=== PATIENT | male | born 1985 | race American Indian/Alaskan Native ===

== ENCOUNTER 2021-02-22 12:19 | Emergency (ER) | payer SELFPAY ==
[2021-02-22 12:37] VITALS: BP 138/85
--- NOTE | 2021-02-22 12:43 | Emergency Department Report ---
HPI - General Chief Complaint: Urogenital-Male Time Seen by Provider: 02/22/21 12:31 - HPI [place] [facility] [place] The patient is a 35-year-old male present with a chief complaint of right testicle pain. The patient states he was having intercourse 02/17/2021 with his partner on top when she reportedly came down on his right testicle. Patient complains of pain since. Patient states the pain has subsided somewhat but is still present. Patient denies dysuria or hematuria. Patient denies penile discharge or fever. Patient currently gets his testicle pain score of 2/10. Patient denies penile injury ED Past Medical Hx - Past Medical History Previous Medical History?: No - Surgical History Additional Surgical History: Left knee - Family History Family history: no significant - Social History Smoking Status: Current Every Day Smoker (1/4 pack/day) Substance Use Type: None (Denies illicit drug use), Alcohol (Occasional) - Medications Home Medications: Home Medications Medication Instructions Recorded Confirmed Last Taken Type Ciprofloxacin HCl 500 mg PO BID #14 tablet 02/22/21 Unknown Rx HYDROcodone/APAP 5-325 [[place] 1 - 2 each PO Q6HR PRN #14 tablet 02/22/21 Unknown Rx 5/325] Ibuprofen [Motrin 800 MG tab] 800 mg PO Q8HR PRN #20 tablet 02/22/21 Unknown Rx ED Review of Systems ROS: Stated complaint: SCROTUM PAIN Other details as noted in HPI Constitutional: denies: fever Eyes: denies: eye pain ENT: denies: throat pain Respiratory: no symptoms reported Cardiovascular: denies: chest pain Endocrine: no symptoms reported Gastrointestinal: denies: abdominal pain Genitourinary: testicular pain. denies: dysuria, hematuria, discharge Neurological: denies: headache Physical Exam - Physical Exam Vital Signs: Vital Signs 02/22/21 12:35 Pulse Rate 98 H Respiratory 14 Rate Blood Pressure 138/85 [Right] O2 Sat by Pulse 99 Oximetry Physical Exam: GENERAL: The patient is well-developed well-nourished male sitting in chair not appearing to be in acute distress. [] HEENT: Normocephalic. Atraumatic. Extraocular motions are intact. Patient has moist mucous membranes. NECK: Supple. Trachea midline CHEST/LUNGS: There is no respiratory distress noted. HEART/CARDIOVASCULAR: Regular. There is no tachycardia. There is no gallop rub or murmur. ABDOMEN: Abdomen is soft, nontender. Patient has normal bowel sounds. There is no abdominal distention. SKIN: There is no rash. There is no edema. There is no diaphoresis. NEURO: The patient is awake, alert, and oriented. The patient is cooperative. The patient has no focal neurologic deficits. The patient has normal speech. GCS 15 MUSCULOSKELETAL: There is no evidence of acute injury. TESTICULAR: No edema appreciated. No scrotal ecchymosis appreciated. Positive cremasteric reflex bilaterally ED Course Vital Signs 02/22/21 12:35 Pulse Rate 98 H Respiratory 14 Rate Blood Pressure 138/85 [Right] O2 Sat by Pulse 99 Oximetry ED Medical Decision Making - Radiology Data Radiology results: report reviewed (Testicular ultrasound), image reviewed (Testicular ultrasound) [facility] [address] [place] [address] Ultrasound Report Signed Patient: JOHN COTE MR#: [id number] 42 : 1985 Acct:[id number] Age/Sex: 35 / M ADM Date: 02/22/21 Loc: ED Attending Dr: Ordering Physician: TRE MONTANA MD Date of Service: 02/22/21 Procedure(s): US testicular doppler comp Accession Number(s): [id number] cc: TRE MONTANA MD SCROTAL/TESTICULAR ULTRASOUND INDICATION: Right testicle pain after compression during sex. COMPARISON None available. FINDINGS: RIGHT TESTICLE: 4.1 x 2.0 x 3.0 cm. Normal echogenicity. Normal color flow. No solid or cystic lesions. There is incidental focal calcification in the right testicle measuring 2 mm. RIGHT EPIDIDYMIS: A simple epididymal head cyst measures up to 3 mm. No other significant abnormality. LEFT TESTICLE: 3.9 x 1.9 x 3.1 cm. Normal echogenicity. Normal color flow. No solid or cystic lesions. LEFT EPIDIDYMIS: No significant abnormality. HYDROCELE: None seen. VARICOCELE: None seen. ADD ITIONAL FINDINGS: None. IMPRESSION: No acute abnormality of the testes/scrotum to explain the patient's pain. Signer Name: Nehemiah Potts MD Signed: 02/22/2021 1:54 PM Workstation Name: [id number] Transcribed By: ARYAN Dictated By: Nehemiah Potts MD Electronically Authenticated By: Nehemiah Potts MD Signed Date/Time: 02/22/21 135 DD/ 50 TD/TT: Print Cancel - Differential Diagnosis Testicular contusion, testicular hematoma, testicular torsion, epididymitis Critical care attestation.: If time is entered above; I have spent that time in minutes in the direct care of this critically ill patient, excluding procedure time. ED Disposition Clinical Impression: Contusion of testicle, Pyuria Disposition: HOME / SELF CARE / HOMELESS Is pt being admited?: No Does the pt Need Aspirin: No Condition: Stable Instructions: Contusion, [id number], Urinary Tract Infection, Adult, [id number] Additional Instructions: Return to the emergency department should you develop worsening symptoms, inability to tolerate food or liquids, high fever or any other concerns Prescriptions: Ciprofloxacin HCl 500 mg PO BID #14 tablet Ibuprofen [Motrin 800 MG tab] 800 mg PO Q8HR PRN #20 tablet PRN Reason: Pain, Moderate (4-6) HYDROcodone/APAP 5-325 [[place] 5/325] 1 - 2 each PO Q6HR PRN #14 tablet PRN Reason: Pain Referrals: PRIMARY CARE, [Primary Care Provider] - 3-5 Days TAWNYA ANDREA MD [Staff Physician] - 3-5 Days (Dr. Andrea is a urologist. Please follow-up with him for further evaluation if your pain persists) Time of Disposition: 14:33
--- NOTE | 2021-02-22 13:58 | Ultrasound Report ---
SCROTAL/TESTICULAR ULTRASOUND INDICATION: Right testicle pain after compression during sex. COMPARISON None available. FINDINGS: RIGHT TESTICLE: 4.1 x 2.0 x 3.0 cm. Normal echogenicity. Normal color flow. No solid or cystic lesion s. There is incidental focal calcification in the right testicle measuring 2 mm. RIGHT EPIDIDYMIS: A simple epididymal head cyst measures up to 3 mm. No other significant abnormality . LEFT TESTICLE: 3.9 x 1.9 x 3.1 cm. Normal echogenicity. Normal color flow. No solid or cystic lesions . LEFT EPIDIDYMIS: No significant abnormality. HYDROCELE: None seen. VARICOCELE: None seen. ADDITIONAL FINDINGS: None. IMPRESSION: No acute abnormality of the testes/scrotum to explain the patient's pain. Signer Name: Nehemiah Potts MD Signed: 02/22/2021 1:54 PM Workstation Name: [id number]
[2021-02-22 14:20] LABS: Bilirubin,Urine NEG (Negative); Blood,Urine NEG (Negative); Color,Urine Yellow (Yellow); Protein,Urine <15 mg/dL mg/dL (Negative); Urobilinogen,Urine < 2.0 mg/dL (<2.0)
== END 2021-02-22 15:10 | disposition home or self-care (01) ==
LOC: ED 12:19
DX: S30.22XA Contusion of scrotum and testes, initial encounter (principal); R82.81 Pyuria; Z98.890 Other specified postprocedural states; F17.290 Nicotine dependence, other tobacco product, uncomplicated; X58.XXXA Exposure to other specified factors, initial encounter; Y93.89 Activity, other specified; Y92.89 Other specified places as the place of occurrence of the external cause; Y99.8 Other external cause status
CPT/HCPCS: 81001; 87086; 93975; 99284

== ENCOUNTER 2021-05-01 11:44 | Emergency (ER) | payer SELFPAY ==
[2021-05-01 12:44] VITALS: BP 143/90
--- NOTE | 2021-05-01 12:45 | Emergency Department Report ---
ED Male HPI - General Chief complaint: Urogenital-Male Stated complaint: TESTICULAR TORSION Time Seen by Provider: 05/01/21 12:05 Source: patient Mode of arrival: Ambulatory Limitations: No Limitations - History of Present Illness Initial comments: Patient is a 35-year-old male presents emergency room with complaints of a rash to his testicles and perineum region that has been there for over a week. He states he has been using an antifungal powder as he has had a lot of moisture in that region. He denies any swelling or drainage or fever or chills. Patient states that he is also had intermittent right-sided testicular pain being seen in January 2021. He had a Doppler scrotal ultrasound at that time which was within normal limits. His UA showed pyuria and he completed a course of ciprofloxacin. He did not undergo STD testing. He reports he is only sexually active with his . He denies any abdominal pain, vomiting, diarrhea, dysu julio, urinary retention, hematuria, penile discharge. He did not follow-up with anyone after being seen in January but states he just had the same intermittent pain. He has never had a history of testicular torsion or surgeries in the abdomen or pelvis or groin.. No allergies to medications - Related Data Previous Rx's Medication Instructions Recorded Last Taken Type Ciprofloxacin HCl 500 mg PO BID #14 tablet 02/22/21 Unknown Rx HYDROcodone/APAP 5-325 [[place] 1 - 2 each PO Q6HR PRN #14 tablet 02/22/21 Unknown Rx 5/325] Ibuprofen [Motrin 800 MG tab] 800 mg PO Q8HR PRN #20 tablet 02/22/21 Unknown Rx Allergies Allergy/AdvReac Type Severity Reaction Status Date / Time No Known Allergies Allergy Verified 05/01/21 11:50 ED Review of Systems ROS: Stated complaint: TESTICULAR TORSION Other details as noted in HPI Comment: All other systems reviewed and negative ED Past Medical Hx - Surgical History Additional Surgical History: Left knee - Social History Smoking Status: Current Every Day Smoker (1/4 pack/day) Substance Use Type: None (Denies illicit drug use), Alcohol (Occasional) - Medications Home Medications: Home Medications Medication Instructions Recorded Confirmed Last Taken Type Ciprofloxacin HCl 500 mg PO BID #14 tablet 02/22/21 Unknown Rx HYDROcodone/APAP 5-325 [[place] 1 - 2 each PO Q6HR PRN #14 tablet 02/22/21 Unknown Rx 5/325] Ibuprofen [Motrin 800 MG tab] 800 mg PO Q8HR PRN #20 tablet 02/22/21 Unknown Rx ED Physical Exam - General Limitations: No Limitations General appearance: alert, in no apparent distress - Head Head exam: Present: atraumatic, normocephalic - Eye Eye exam: Present: normal appearance - ENT ENT exam: Present: mucous membranes moist - GI/Abdominal GI/Abdominal exam: Present: soft. Absent: distended, tenderness, guarding, rebound, rigid - exam: Present: other (communications engineer: mohan dumont, there is no testicular ttp, no scrotal edema, no induration, no increased warmth, no drainage, normal testicular lie, normal cremasteric reflex, no obvious masses, no hernia, no lesions or blisters, mild skin irritation with dry skin). Absent: testicular tenderness, urethral discharge, scrotal swelling - Neurological Exam Neurological exam: Present: alert, oriented X3 - Psychiatric Psychiatric exam: Present: normal affect, normal mood - Skin Skin exam: Present: warm, dry ED Course Vital Signs 05/01/21 11:54 Temperature 97.4 F L Pulse Rate 94 H Respiratory 18 Rate Blood Pressure 143/90 O2 Sat by Pulse 100 Oximetry ED Medical Decision Making - Medical Decision Making Patient is a 35-year-old male presents emergency room with complaints of a rash to his testicles and perineum region that has been there for over a week. He states he has been using an antifungal powder as he has had a lot of moisture in that region. He denies any swelling or drainage or fever or chills. Patient states that he is also had intermittent right-sided testicular pain being seen i n January 2021. He had a Doppler scrotal ultrasound at that time which was within normal limits. His UA showed pyuria and he completed a course of ciprofloxacin. He did not undergo STD testing. He reports he is only sexually active with his . He denies any abdominal pain, vomiting, diarrhea, dysuria, urinary retention, hematuria, penile discharge. He did not follow-up with anyone after being seen in January but states he just had the same intermittent pain. He has never had a history of testicular torsion or surgeries in the abdomen or pelvis or groin.. No allergies to medications. vss. on exam: communications engineer: mohan dumont, there is no testicular ttp, no scrotal edema, no induration, no increased warmth, no drainage, normal testicular lie, normal cremasteric reflex, no obvious masses, no hernia, no lesions or blisters, mild skin irritation with dry skin. No clinical signs of cellulitis or abscess. No clinical signs of torsion, orchitis, or epididymitis. There is a mild rash which likely appears consistent with tinea cruris. advised pt that due to the fact he has had this for months he needed to follow up with urology and primary care doctor. Given that patient had polyuria previously, advised patient that we would need to obtain a urine sample. [email or web address] attempted to call patient multiple times with no answer for urine sample. It appears patient has eloped from emergency department prior to completion of medical examination. Patient was stable at my time of examination. Critical care attestation.: If time is entered above; I have spent that time in minutes in the direct care of this critically ill patient, excluding procedure time. ED Disposition Clinical Impression: Tinea cruris Testicular pain Qualifiers: Laterality: right Qualified Code(s): N50.811 - Right testicular pain Disposition: 07 LEFT AWOL/ELOPED Is pt being admited?: No Does the pt Need Aspirin: No Condition: Stable Referrals: PRIMARY CAREMD [Primary Care Provider] - 3-5 Days CONSTANZA VILLA MD [Staff Physician] - 3-5 Days
== END 2021-05-01 13:00 | disposition left against medical advice (07) ==
LOC: ED 11:44
DX: B35.6 Tinea cruris (principal); N50.811 Right testicular pain; Z98.890 Other specified postprocedural states; F17.200 Nicotine dependence, unspecified, uncomplicated
CPT/HCPCS: 99281